=== PATIENT | female | born 1995 | race Caucasian/White ===

== ENCOUNTER 2017-04-05 10:44 | Emergency (ER) | payer OTHER ==
[~2017-04-05] VITALS: Ht 165.1 cm; Wt 63.6 kg
[2017-04-05 10:51] VITALS: BP 109/66; RESP 12; O2SAT 100
== END 2017-04-05 11:00 | disposition left against medical advice (07) ==
LOC: SED 10:44
DX: Z53.21 Procedure and treatment not carried out due to patient leaving prior to being seen by health care provider (principal)